=== PATIENT | male | born 1960 | race Caucasian/White ===

== ENCOUNTER 2017-11-21 19:31 | Outpatient (CLI) | payer OTHER | END 2017-11-21 19:32 | disposition home or self-care (01) | LOC: SC 19:31 | PROVIDERS: ATTEND Internal Medicine Pulmonary Disease | DX: G47.33 Obstructive sleep apnea (adult) (pediatric) (principal); G47.61 Periodic limb movement disorder | CPT/HCPCS: 95810 ==

== ENCOUNTER 2017-12-26 09:09 | Outpatient (CLI) | payer OTHER | END 2017-12-26 09:10 | disposition home or self-care (01) | LOC: SC 09:09 | PROVIDERS: ATTEND Nurse Practitioner Family | DX: G47.33 Obstructive sleep apnea (adult) (pediatric) (principal); G47.61 Periodic limb movement disorder | CPT/HCPCS: 99212; 99214 ==

== ENCOUNTER 2023-11-24 11:58 | Outpatient (CLI) | payer OTHER ==
[2023-11-24 12:26] LABS: CREATININE 1.3 mg/dL (0.6-1.3)
[2023-11-24] MEDS ORDERED: iohexoL-300 100 ML VIAL IVP ONE (15:50)
--- NOTE | 2023-11-24 17:20 | CT Report ---
PROCEDURE: ANGIO CHEST W/WO INDICATIONS: EXERTIONAL ANGINA CONTRAST: Omni 300 80ml TECHNIQUE: After the administration of intravenous contrast, 2 mm axial images were acquired from the pulmonary apices to the posterior costophrenic angles during the arterial phase. In addition, 1 mm lung kernel and 5 mm soft tissue kernel reconstructions were performed. 3-dimensional coronal oblique maximum int ensity projection (MIP) reformats, 8 mm axial MIP, and 5 mm coronal and sagittal MPR reformats were t hen performed through the thorax. For radiation dose reduction, the following was used: automated exp osure control, adjustment of mA and/or kV according to patient size. COMPARISON: None. FINDINGS: Image quality: Excellent. Large vessels: The pulmonary arteries are not well opacified due to arterial bolus timing, however no pulmonary artery emboli are identified. The aorta has a normal caliber. No aneurysm or dissection of the aorta. No significant atherosclerotic calcifications are seen. The SMA, celiac trunk, and renal arteries are widely patent. The exam is not diagnostic for coronary artery disease due to motion anh fact. Lungs and pleura: No consolidation. No pleural effusions. No pneumothorax. No suspicious pulmonary n odules which require follow up. Mediastinum: Heart size is normal. No pericardial effusion. No large vessel abnormality. No mediastin al adenopathy by size criteria. Chest wall and lower neck: Thyroid is unremarkable. No axillary or supraclavicular adenopathy by size . Bones: No aggressive osseous abnormality. Upper Abdomen: Unremarkable. IMPRESSION: 1. Normal CTA of the aorta and its branches. 2. No acute abnormality of the chest identified. Reviewed by: Polo Dyer MD on 11/24/2023 5:19 PM PST Approved by: Polo Dyer MD on 11/24/2023 5:19 PM PST Station ID: [id number]
== END 2023-11-24 11:59 | disposition home or self-care (01) ==
LOC: LAB 11:58
PROVIDERS: ATTEND Family Medicine
DX: I20.89 Other forms of angina pectoris (principal)
CPT/HCPCS: 36415; 71275; 82565; Q9967

== ENCOUNTER 2024-05-27 21:39 | Outpatient (CLI) | payer MEDICARE, OTHER | END 2024-05-27 23:59 | disposition EMS.NT | LOC: EMS 21:39 | DX: S80.811A Abrasion, right lower leg, initial encounter (principal); V90.09XA Drowning and submersion due to unspecified watercraft overturning, initial encounter; Y92.89 Other specified places as the place of occurrence of the external cause; X31.XXXA Exposure to excessive natural cold, initial encounter ==